=== PATIENT | female | born 1950 | race Caucasian/White ===

== ENCOUNTER 2021-03-27 18:15 | Observation (INO) | payer OTHER ==
[2021-03-27] MEDS ORDERED: METOCLOPRAMIDE HCL INJECTION 10 MG/2 ML VIAL IVPUSH ONE (20:11)
[2021-03-27] MEDS ORDERED: ACETAMINOPHEN 500 MG TABLET (FP) PO ONE (20:21)
[2021-03-27] MEDS ORDERED: ACETAMINOPHEN 500 MG TABLET (FP) ONE (20:47)
[2021-03-27] MEDS ORDERED: SODIUM CHLORIDE 0.9% 500 ML INFUS.BAG IV ONE (22:27)
[2021-03-27 22:29] LABS: HEMATOCRIT 35.9 % (32.4-45.2); HEMOGLOBIN 11.9 GM/dL (10.7-15.3); MCH 25.5 pg (25.7-33.7); MCHC 33.1 g/dl (32.0-36.0); MEAN PLT VOLUME 7.4 fl (7.5-11.1); PLATELET COUNT 179 10^3/uL (134-434); RBC 4.66 M/mm3 (3.60-5.2); RDW 28.4 % (11.6-15.6); WHITE BLOOD COUNT 11.3 K/mm3 (4.0-10.0)
[2021-03-27 22:30] LABS: ADD RBC MORPHOLOGY YES
[2021-03-27 22:36] LABS: INR 1.03 (0.83-1.09); PROTHROMBIN TIME (PATIENT) 11.5 SEC (9.7-13.0)
[2021-03-27 22:39] LABS: ACTIVATED PTT 28.3 SECONDS (25.2-36.5)
[2021-03-27 22:50] LABS: CALCIUM 8.8 mg/dL (8.5-10.1)
[2021-03-27 22:51] LABS: ALBUMIN 3.7 g/dl (3.4-5.0)
[2021-03-27 22:54] LABS: BILIRUBIN,TOTAL 0.3 mg/dL (0.2-1)
[2021-03-27 22:56] LABS: TOT PROT 6.6 g/dl (6.4-8.2)
[2021-03-27 23:04] LABS: ANISOCYTOSIS 3+; MACROCYTOSIS 1+; OVALOCYTE 1+
[2021-03-28] MEDS ORDERED: morphine SULFATE 4 MG/ML VIAL IVPUSH ONE (01:12)
[2021-03-28] MEDS ORDERED: ACETAMINOPHEN 1000 MG/100 ML VIAL IVPB ONE (02:00)
[2021-03-28] MEDS ORDERED: morphine SULFATE 4 MG/ML VIAL ONE (02:02)
[2021-03-28] MEDS ORDERED: ACETAMINOPHEN INJECTION 100 ML IVPB ONE (02:02)
[2021-03-28 04:33] LABS: EPI CELLS 4 /uL (0-25.1); HYALINE CASTS 0 /uL (0-3.1); URINE APPEARANCE CLEAR; URINE BACTERIA 32 /uL (0-1359); URINE BILIRUBIN NEGATIVE (NEGATIVE); URINE COLOR YELLOW; URINE GLUCOSE (UA) NEGATIVE (NEGATIVE); URINE KETONE NEGATIVE (NEGATIVE); URINE LEUK ESTERASE 1+ (NEGATIVE); URINE NITRITE NEGATIVE (NEGATIVE); URINE PROTEIN NEGATIVE (NEGATIVE); URINE RBC 1 /uL (0-23.9); URINE UROBILINOGEN 0.2 mg/dL (0.2-1.0); URINE WBC 15 /uL (0-25.8)
[2021-03-28 04:51] VITALS: BMI 29.2
[2021-03-28] MEDS ORDERED: ALBUTEROL SO4 HFA INHALER IH PRN (05:15)
[2021-03-28] MEDS: LEVOTHYROXINE NA 25 MCG TABLET (FP) PO SCH (06:50)
[2021-03-28 08:37] LABS: HEMATOCRIT 34.1 % (32.4-45.2); HEMOGLOBIN 11.3 GM/dL (10.7-15.3); MCH 25.8 pg (25.7-33.7); MCHC 33.2 g/dl (32.0-36.0); MEAN CELL VOLUME 77.7 fl (80-96); MEAN PLT VOLUME 7.5 fl (7.5-11.1); PLATELET COUNT 162 10^3/uL (134-434); RDW 28.6 % (11.6-15.6); WHITE BLOOD COUNT 8.8 K/mm3 (4.0-10.0)
[2021-03-28 09:07] LABS: ALBUMIN 3.1 g/dl (3.4-5.0); CALCIUM 8.5 mg/dL (8.5-10.1)
[2021-03-28 09:08] LABS: BLOOD UREA NITROGEN 14.8 mg/dL (7-18); MAGNESIUM 2.5 mg/dL (1.8-2.4)
[2021-03-28 09:11] LABS: BILIRUBIN,TOTAL 0.6 mg/dL (0.2-1); PHOSPHOROUS 3.3 mg/dL (2.5-4.9); TOT PROT 5.6 g/dl (6.4-8.2)
[2021-03-28] MEDS ORDERED: DEXTROSE 5%-WATER - 50 ML IVPB ONE (09:38)
[2021-03-28] MEDS ORDERED: cefTRIAXone SODIUM 1 GM VIAL ONE (09:38)
[2021-03-28] MEDS: CEFTRIAXONE 1 GM in DEXTROSE 5%-WATER - 50 ML IVPB SCH (09:40)
[2021-03-28] MEDS: SERTRALINE HCL 50 MG TABLET (FP) PO SCH (09:40)
[2021-03-28] MEDS: amLODIPine BESYLATE 10 MG TABLET (FP) PO SCH (09:40)
[2021-03-28] MEDS: CLOPIDOGREL BISULFATE 75 MG TABLET (FP) PO SCH (09:40)
[2021-03-28] MEDS ORDERED: ACETAMINOPHEN 325 MG TABLET (FP) PO PRN (13:32)
[2021-03-28] MEDS: ACETAMINOPHEN 325 MG TABLET (FP) PO PRN (14:23)
[2021-03-28] MEDS ORDERED: ATORVASTATIN CA 80 MG TABLET (FP) PO SCH ×2 (16:00→22:00)
[2021-03-28] MEDS: VALSARTAN 80 MG TABLET PO SCH (16:42)
[2021-03-28] MEDS: ASPIRIN COATED 81 MG TABLET.EC PO SCH (16:42)
[2021-03-28] MEDS ORDERED: MAG HYDROX/AL HYDROX/SIMETH 30 ML UNIT-DOSE CUP PO ONE (20:48)
[2021-03-29] MEDS: ACETAMINOPHEN 325 MG TABLET (FP) PO PRN (01:39)
[2021-03-29] MEDS: LEVOTHYROXINE NA 25 MCG TABLET (FP) PO SCH (06:09)
[2021-03-29 06:49] VITALS: TEMP 98.5
[2021-03-29 09:03] LABS: CALCIUM 8.8 mg/dL (8.5-10.1)
[2021-03-29 09:04] LABS: ALBUMIN 3.2 g/dl (3.4-5.0); BLOOD UREA NITROGEN 13.2 mg/dL (7-18)
[2021-03-29 09:08] LABS: BILIRUBIN,TOTAL 0.3 mg/dL (0.2-1); CREATININE 0.8 mg/dL (0.55-1.3)
[2021-03-29 09:10] LABS: TOT PROT 5.9 g/dl (6.4-8.2)
[2021-03-29] MEDS ORDERED: DEXTROSE 5%-WATER - 50 ML IVPB ONE (09:10)
[2021-03-29] MEDS ORDERED: cefTRIAXone SODIUM 1 GM VIAL ONE (09:10)
[2021-03-29] MEDS: CEFTRIAXONE 1 GM in DEXTROSE 5%-WATER - 50 ML IVPB SCH (09:22)
[2021-03-29] MEDS: VALSARTAN 80 MG TABLET PO SCH (09:23)
[2021-03-29] MEDS: CLOPIDOGREL BISULFATE 75 MG TABLET (FP) PO SCH (09:23)
[2021-03-29] MEDS: SERTRALINE HCL 50 MG TABLET (FP) PO SCH (09:23)
[2021-03-29] MEDS: ASPIRIN COATED 81 MG TABLET.EC PO SCH (09:23)
[2021-03-29] MEDS: amLODIPine BESYLATE 10 MG TABLET (FP) PO SCH (09:24)
[2021-03-29 12:06] LABS: HEMATOCRIT 36.1 % (32.4-45.2); HEMOGLOBIN 11.8 GM/dL (10.7-15.3); MCH 25.8 pg (25.7-33.7); MCHC 32.6 g/dl (32.0-36.0); MEAN CELL VOLUME 79.2 fl (80-96); MEAN PLT VOLUME 8.2 fl (7.5-11.1); PLATELET COUNT 161 10^3/uL (134-434); RBC 4.56 M/mm3 (3.60-5.2); RDW 27.8 % (11.6-15.6); WHITE BLOOD COUNT 9.8 K/mm3 (4.0-10.0)
[2021-03-29 12:27] VITALS: BP 144/60; PULSE 75
[2021-03-29] MEDS ORDERED: ACETAMINOPHEN 325 MG TABLET (FP) PO PRN (12:35)
== END 2021-03-29 15:27 | disposition home or self-care (01) ==
LOC: JER 18:15 → JERBED 23:04 → J8W 03-28 03:48
PROVIDERS: ADMIT Internal Medicine; ATTEND Internal Medicine
PROC: 3E033NZ Introduction of Analgesics, Hypnotics, Sedatives into Peripheral Vein, Percutaneous Approach (ICD-10-PCS; principal; 2021-03-27)
PROC: 3E033NZ Introduction of Analgesics, Hypnotics, Sedatives into Peripheral Vein, Percutaneous Approach (ICD-10-PCS; 2021-03-27)
PROC: 3E0337Z Introduction of Electrolytic and Water Balance Substance into Peripheral Vein, Percutaneous Approach (ICD-10-PCS; 2021-03-27)
DX: N39.0 Urinary tract infection, site not specified (principal); E78.5 Hyperlipidemia, unspecified; I10 Essential (primary) hypertension; J45.909 Unspecified asthma, uncomplicated; E03.9 Hypothyroidism, unspecified; Z79.01 Long term (current) use of anticoagulants; I63.9 Cerebral infarction, unspecified; W18.39XA Other fall on same level, initial encounter; Y93.89 Activity, other specified; Y92.89 Other specified places as the place of occurrence of the external cause
CPT/HCPCS: 36415; 70450-TC; 71045-TC-FY; 72125-TC; 73562-TC-LT-FY; 73562-TC-RT-FY; 80048; 80053; 81003; 83735; 84100; 85025; 85027; 85610; 85730; 93005; 93010; 94010; 96365; 96375; 97116-GP; 97161-GP; 99285-25; C9803; G0378; J0131; U0003; U0005

== ENCOUNTER 2022-11-06 18:32 | Inpatient (IN) | payer OTHER ==
[2022-11-06 18:56] VITALS: BMI 28.5
[2022-11-06] MEDS ORDERED: ASPIRIN 325 MG TABLET PO ONE (19:41)
[2022-11-06] MEDS ORDERED: ACETAMINOPHEN 1000 MG/100 ML BAG IVPB ONE (20:28)
[2022-11-06] MEDS ORDERED: LIDOCAINE 5% TOPICAL PATCH TP ONE (20:28)
[2022-11-06] MEDS ORDERED: LIDOCAINE 5% TOPICAL PATCH ONE (20:31)
[2022-11-06] MEDS ORDERED: ACETAMINOPHEN INJECTION 100 ML IVPB ONE (20:31)
[2022-11-06 20:59] LABS: VENOUS BASE EXCESS 1.1 mmol/L (-2-2); VENOUS O2 SATURATION 75.9 % (70-80); VENOUS PCO2 43.2 mmHg (38-52); VENOUS PH 7.401 (7.310-7.410)
[2022-11-06 21:11] LABS: BASO % 0.1 % (0-2.0); EOS % 2.2 % (0-4.5); HEMATOCRIT 29.8 % (32.4-45.2); HEMOGLOBIN 9.6 GM/dL (10.7-15.3); LYMPH % 8.5 % (8-40); MCH 24.3 pg (25.7-33.7); MCHC 32.2 g/dl (32.0-36.0); MEAN CELL VOLUME 75.6 fl (80-96); MONO % 7.6 % (3.8-10.2); NEUT % 81.6 % (42.8-82.8); PLATELET COUNT 176 10^3/uL (134-434); RBC 3.94 M/mm3 (3.60-5.2); RDW 16.4 % (11.6-15.6); WHITE BLOOD COUNT 5.8 K/mm3 (4.0-10.0)
[2022-11-06 21:19] LABS: INR 1.09 (0.83-1.09); POTASSIUM 3.5 mmol/L (3.5-5.1); PROTHROMBIN TIME (PATIENT) 12.6 SEC (9.7-13.0)
[2022-11-06 21:20] LABS: CALCIUM 8.8 mg/dL (8.5-10.1)
[2022-11-06 21:21] LABS: ALBUMIN 3.4 g/dl (3.4-5.0)
[2022-11-06 21:22] LABS: ACTIVATED PTT 31.5 SECONDS (25.2-36.5); BLOOD UREA NITROGEN 11.9 mg/dL (7-18)
[2022-11-06 21:24] LABS: CREATININE 1.2 mg/dL (0.55-1.3)
[2022-11-06 21:26] LABS: TOT PROT 6.2 g/dl (6.4-8.2)
[2022-11-06 21:27] LABS: BILIRUBIN,TOTAL 0.3 mg/dL (0.2-1)
[2022-11-06 22:56] LABS: PH,URINE 7.5 (5.0-8.0); URINE APPEARANCE Error; URINE BILIRUBIN NEGATIVE (NEGATIVE); URINE COLOR YELLOW; URINE GLUCOSE (UA) NEGATIVE (NEGATIVE); URINE KETONE NEGATIVE (NEGATIVE); URINE LEUK ESTERASE NEGATIVE (NEGATIVE); URINE NITRITE NEGATIVE (NEGATIVE); URINE PROTEIN TRACE (NEGATIVE); URINE UROBILINOGEN 0.2 mg/dL (0.2-1.0)
[2022-11-07] MEDS ORDERED: ASPIRIN 81 MG CHEWABLE TABLETS PO ONE (00:03)
[2022-11-07] MEDS ORDERED: ASPIRIN 81 MG CHEWABLE TABLETS ONE (00:13)
[2022-11-07] MEDS ORDERED: ONDANSETRON 4 MG/2 ML VIAL IVPUSH ONE (00:54)
[2022-11-07] MEDS ORDERED: ONDANSETRON 4 MG/2 ML VIAL ONE (00:55)
[2022-11-07] MEDS ORDERED: ALBUTEROL SO4 HFA INHALER IH PRN (01:27)
[2022-11-07] MEDS: LEVOTHYROXINE NA 50 MCG TABLET (FP) PO SCH (06:21)
[2022-11-07 07:56] LABS: BASO % 0.4 % (0-2.0); EOS % 5.7 % (0-4.5); HEMATOCRIT 30.5 % (32.4-45.2); HEMOGLOBIN 9.8 GM/dL (10.7-15.3); LYMPH % 13.7 % (8-40); MCHC 32.3 g/dl (32.0-36.0); MEAN CELL VOLUME 77.4 fl (80-96); MEAN PLT VOLUME 8.6 fl (7.5-11.1); MONO % 9.9 % (3.8-10.2); NEUT % 70.3 % (42.8-82.8); PLATELET COUNT 180 10^3/uL (134-434); RBC 3.94 M/mm3 (3.60-5.2); RDW 16.6 % (11.6-15.6); RETICULOCYTES 2.18 % (0.5-1.5); WHITE BLOOD COUNT 4.8 K/mm3 (4.0-10.0)
[2022-11-07 08:11] LABS: POTASSIUM 3.6 mmol/L (3.5-5.1)
[2022-11-07 08:16] LABS: ALBUMIN 3.4 g/dl (3.4-5.0); CALCIUM 9.1 mg/dL (8.5-10.1)
[2022-11-07 08:17] LABS: BLOOD UREA NITROGEN 10.2 mg/dL (7-18)
[2022-11-07 08:19] LABS: CREATININE 1.1 mg/dL (0.55-1.3)
[2022-11-07 08:21] LABS: BILIRUBIN,TOTAL 0.3 mg/dL (0.2-1); TOT PROT 6.3 g/dl (6.4-8.2)
[2022-11-07] MEDS: SERTRALINE HCL 50 MG TABLET (FP) PO SCH (10:50)
[2022-11-07] MEDS: CLOPIDOGREL BISULFATE 75 MG TABLET (FP) PO SCH (10:50)
[2022-11-07] MEDS: ENOXAPARIN NA (PORCINE) 40 MG/0.4 ML DISP.SYRIN SQ SCH (10:50)
[2022-11-07] MEDS: ACETAMINOPHEN 1000 MG/100 ML BAG IVPB PRN (13:44)
[2022-11-07] MEDS: ATORVASTATIN CA 80 MG TABLET (FP) PO SCH (22:23)
[2022-11-07] MEDS: GABAPENTIN 300 MG CAPSULE PO SCH (22:24)
[2022-11-08] MEDS: ACETAMINOPHEN 1000 MG/100 ML BAG IVPB PRN (05:56)
[2022-11-08] MEDS: LEVOTHYROXINE NA 50 MCG TABLET (FP) PO SCH (06:00)
[2022-11-08] MEDS: ENOXAPARIN NA (PORCINE) 40 MG/0.4 ML DISP.SYRIN SQ SCH (10:25)
[2022-11-08] MEDS: SERTRALINE HCL 50 MG TABLET (FP) PO SCH (10:25)
[2022-11-08] MEDS: CLOPIDOGREL BISULFATE 75 MG TABLET (FP) PO SCH (10:25)
[2022-11-08] MEDS ORDERED: SODIUM CHLORIDE 250 ML IV STA (14:29)
[2022-11-08] MEDS ORDERED: ONDANSETRON 4 MG/2 ML VIAL IVPB PRN (17:12)
[2022-11-08] MEDS ORDERED: ACETAMINOPHEN 325 MG TABLET (FP) PO PRN (17:13)
[2022-11-08] MEDS: GABAPENTIN 300 MG CAPSULE PO SCH (21:18)
[2022-11-08] MEDS: ATORVASTATIN CA 80 MG TABLET (FP) PO SCH (21:18)
[2022-11-09] MEDS: LEVOTHYROXINE NA 50 MCG TABLET (FP) PO SCH (06:25)
[2022-11-09 08:12] LABS: BASO % 0.4 % (0-2.0); EOS % 5.8 % (0-4.5); HEMATOCRIT 29.5 % (32.4-45.2); HEMOGLOBIN 9.3 GM/dL (10.7-15.3); LYMPH % 15.2 % (8-40); MCH 24.5 pg (25.7-33.7); MCHC 31.5 g/dl (32.0-36.0); MEAN CELL VOLUME 77.7 fl (80-96); MEAN PLT VOLUME 8.8 fl (7.5-11.1); MONO % 11.1 % (3.8-10.2); NEUT % 67.5 % (42.8-82.8); PLATELET COUNT 165 10^3/uL (134-434); RDW 16.9 % (11.6-15.6); WHITE BLOOD COUNT 5.3 K/mm3 (4.0-10.0)
[2022-11-09 08:29] LABS: POTASSIUM 3.2 mmol/L (3.5-5.1)
[2022-11-09 08:33] LABS: BLOOD UREA NITROGEN 8.9 mg/dL (7-18)
[2022-11-09 08:34] LABS: CALCIUM 8.5 mg/dL (8.5-10.1)
[2022-11-09 08:36] LABS: CREATININE 1.1 mg/dL (0.55-1.3); PHOSPHOROUS 2.2 mg/dL (2.5-4.9)
[2022-11-09 08:37] LABS: BILIRUBIN,TOTAL 0.5 mg/dL (0.2-1); TOT PROT 5.7 g/dl (6.4-8.2)
[2022-11-09] MEDS: SERTRALINE HCL 50 MG TABLET (FP) PO SCH (09:09)
[2022-11-09] MEDS: ENOXAPARIN NA (PORCINE) 40 MG/0.4 ML DISP.SYRIN SQ SCH (09:09)
[2022-11-09] MEDS: CLOPIDOGREL BISULFATE 75 MG TABLET (FP) PO SCH (09:09)
[2022-11-09] MEDS ORDERED: amLODIPine BESYLATE 5 MG TABLET (FP) PO SCH (10:00)
[2022-11-09] MEDS ORDERED: oxyCODONE HCL 5 MG TABLET PO ONE ×3 (13:48→22:58)
[2022-11-09] MEDS ORDERED: POTASSIUM PHOSPHATE 30 MM in DEXTROSE 5%-WATER - 500 ML IVPB ONE (15:00)
[2022-11-09] MEDS ORDERED: hydrALAZINE HCL 25 MG TABLET (FP) PO ONE (17:47)
[2022-11-09] MEDS ORDERED: LOSARTAN POTASSIUM 50 MG TABLET PO SCH (18:00)
[2022-11-09] MEDS ORDERED: ONDANSETRON 4 MG/2 ML VIAL IVPUSH ONE (22:01)
[2022-11-09] MEDS: amLODIPine BESYLATE 5 MG TABLET (FP) PO SCH (22:09)
[2022-11-09] MEDS: GABAPENTIN 100 MG CAPSULE PO SCH (22:09)
[2022-11-09] MEDS: hydrALAZINE HCL 25 MG TABLET (FP) PO SCH (22:09)
[2022-11-10] MEDS: LEVOTHYROXINE NA 50 MCG TABLET (FP) PO SCH (06:13)
[2022-11-10] MEDS: ENOXAPARIN NA (PORCINE) 40 MG/0.4 ML DISP.SYRIN SQ SCH (10:08)
[2022-11-10] MEDS: SERTRALINE HCL 50 MG TABLET (FP) PO SCH (10:08)
[2022-11-10] MEDS: CLOPIDOGREL BISULFATE 75 MG TABLET (FP) PO SCH (10:09)
[2022-11-10] MEDS: amLODIPine BESYLATE 5 MG TABLET (FP) PO SCH ×2 (10:09→22:26)
[2022-11-10] MEDS: hydrALAZINE HCL 25 MG TABLET (FP) PO SCH ×2 (10:09→22:26)
[2022-11-10] MEDS ORDERED: IBUPROFEN 400 MG TABLET (FP) PO PRN ×2 (15:20→17:32)
[2022-11-10] MEDS: ONDANSETRON 4 MG/2 ML VIAL IVPUSH PRN ×2 (17:53→23:28)
[2022-11-10] MEDS ORDERED: ACETAMINOPHEN 325 MG TABLET (FP) PO ONE (18:01)
[2022-11-10 21:10] LABS: POTASSIUM 3.5 mmol/L (3.5-5.1)
[2022-11-10 21:12] LABS: CALCIUM 8.6 mg/dL (8.5-10.1)
[2022-11-10 21:13] LABS: ALBUMIN 2.9 g/dl (3.4-5.0); BLOOD UREA NITROGEN 9.6 mg/dL (7-18)
[2022-11-10 21:16] LABS: CREATININE 1.1 mg/dL (0.55-1.3)
[2022-11-10 21:17] LABS: TOT PROT 5.7 g/dl (6.4-8.2)
[2022-11-10 21:18] LABS: BILIRUBIN,TOTAL 0.3 mg/dL (0.2-1)
[2022-11-10] MEDS: GABAPENTIN 100 MG CAPSULE PO SCH (22:26)
[2022-11-11] MEDS: LEVOTHYROXINE NA 50 MCG TABLET (FP) PO SCH (06:23)
[2022-11-11 08:46] LABS: BASO % 0.5 % (0-2.0); EOS % 9.4 % (0-4.5); HEMATOCRIT 28.6 % (32.4-45.2); HEMOGLOBIN 9.3 GM/dL (10.7-15.3); LYMPH % 18.7 % (8-40); MCH 24.6 pg (25.7-33.7); MCHC 32.4 g/dl (32.0-36.0); MEAN CELL VOLUME 76.1 fl (80-96); MEAN PLT VOLUME 8.2 fl (7.5-11.1); MONO % 8.9 % (3.8-10.2); NEUT % 62.5 % (42.8-82.8); PLATELET COUNT 197 10^3/uL (134-434); RBC 3.76 M/mm3 (3.60-5.2); RDW 17.6 % (11.6-15.6)
[2022-11-11 09:01] LABS: POTASSIUM 3.5 mmol/L (3.5-5.1)
[2022-11-11 09:03] LABS: CALCIUM 8.8 mg/dL (8.5-10.1)
[2022-11-11 09:04] LABS: ALBUMIN 2.9 g/dl (3.4-5.0); MAGNESIUM 2.1 mg/dL (1.8-2.4)
[2022-11-11 09:07] LABS: PHOSPHOROUS 3.1 mg/dL (2.5-4.9)
[2022-11-11 09:08] LABS: BILIRUBIN,TOTAL 0.3 mg/dL (0.2-1); TOT PROT 5.5 g/dl (6.4-8.2)
[2022-11-11] MEDS: hydrALAZINE HCL 25 MG TABLET (FP) PO SCH ×2 (09:24→21:39)
[2022-11-11] MEDS: amLODIPine BESYLATE 5 MG TABLET (FP) PO SCH ×2 (09:24→21:38)
[2022-11-11] MEDS: LOSARTAN POTASSIUM 25 MG TABLET PO SCH (09:24)
[2022-11-11] MEDS: SERTRALINE HCL 50 MG TABLET (FP) PO SCH (09:24)
[2022-11-11] MEDS: CLOPIDOGREL BISULFATE 75 MG TABLET (FP) PO SCH (09:24)
[2022-11-11] MEDS: ASPIRIN COATED 81 MG TABLET.EC PO SCH (09:24)
[2022-11-11] MEDS: ENOXAPARIN NA (PORCINE) 40 MG/0.4 ML DISP.SYRIN SQ SCH (09:55)
[2022-11-11] MEDS ORDERED: ACETAMINOPHEN 500 MG TABLET (FP) PO ONE (18:18)
[2022-11-11] MEDS ORDERED: MELATONIN 5 MG TABLETS PO PRN (21:31)
[2022-11-11] MEDS: GABAPENTIN 100 MG CAPSULE PO SCH (21:38)
[2022-11-12] MEDS: LEVOTHYROXINE NA 50 MCG TABLET (FP) PO SCH (06:09)
[2022-11-12 07:59] LABS: BASO % 0.5 % (0-2.0); EOS % 10.5 % (0-4.5); HEMATOCRIT 29.7 % (32.4-45.2); HEMOGLOBIN 9.2 GM/dL (10.7-15.3); LYMPH % 20.3 % (8-40); MCH 24.2 pg (25.7-33.7); MCHC 31.1 g/dl (32.0-36.0); MEAN CELL VOLUME 77.9 fl (80-96); MEAN PLT VOLUME 8.6 fl (7.5-11.1); MONO % 6.5 % (3.8-10.2); NEUT % 62.2 % (42.8-82.8); PLATELET COUNT 229 10^3/uL (134-434); RBC 3.81 M/mm3 (3.60-5.2); RDW 18.1 % (11.6-15.6); WHITE BLOOD COUNT 8.5 K/mm3 (4.0-10.0)
[2022-11-12 08:22] LABS: POTASSIUM 3.6 mmol/L (3.5-5.1)
[2022-11-12 08:27] LABS: CALCIUM 8.9 mg/dL (8.5-10.1)
[2022-11-12 08:28] LABS: BLOOD UREA NITROGEN 7.9 mg/dL (7-18)
[2022-11-12] MEDS: SERTRALINE HCL 50 MG TABLET (FP) PO SCH (09:59)
[2022-11-12] MEDS: amLODIPine BESYLATE 5 MG TABLET (FP) PO SCH (09:59)
[2022-11-12] MEDS: ENOXAPARIN NA (PORCINE) 40 MG/0.4 ML DISP.SYRIN SQ SCH (09:59)
[2022-11-12] MEDS: CLOPIDOGREL BISULFATE 75 MG TABLET (FP) PO SCH (10:00)
[2022-11-12] MEDS: LOSARTAN POTASSIUM 25 MG TABLET PO SCH (10:00)
[2022-11-12] MEDS: hydrALAZINE HCL 25 MG TABLET (FP) PO SCH (10:00)
[2022-11-12] MEDS: ASPIRIN COATED 81 MG TABLET.EC PO SCH (10:00)
[2022-11-12 10:54] VITALS: RESP 18
[2022-11-12 14:25] VITALS: BP 129/69; PULSE 91; TEMP 98.2
== END 2022-11-12 17:24 | disposition home health service (06) | DRG 65 ==
LOC: JER 18:32 → JERBED 22:37 → J4W 11-07 02:24
PROVIDERS: ADMIT Internal Medicine; ATTEND Internal Medicine
DX: I63.9 Cerebral infarction, unspecified (principal); G81.94 Hemiplegia, unspecified affecting left nondominant side; R29.706 NIHSS score 6; H53.461 Homonymous bilateral field defects, right side; I69.392 Facial weakness following cerebral infarction; E03.9 Hypothyroidism, unspecified; I10 Essential (primary) hypertension; M50.322 Other cervical disc degeneration at C5-C6 level; E78.5 Hyperlipidemia, unspecified; J45.909 Unspecified asthma, uncomplicated; Z96.651 Presence of right artificial knee joint; G44.209 Tension-type headache, unspecified, not intractable; D50.9 Iron deficiency anemia, unspecified; R19.00 Intra-abdominal and pelvic swelling, mass and lump, unspecified site
CPT/HCPCS: 0241U-QW; 36415; 70450-TC; 70544-TC; 70551-TC; 71045-TC-FY; 71250-TC; 72125-TC; 72128-TC; 72131-TC; 74176-TC; 76705-TC; 76830-TC; 80048; 80053; 80061; 81003; 82550; 82728; 82803; 82962; 83036; 83540; 83550; 83605; 83735; 84100; 84443; 84466; 84484; 85025; 85045; 85610; 85730; 86850; 86900; 86901; 87040; 87086; 93005; 93010; 93306-TC; 93880-TC; 94010; 97116-GP; 99285-25